=== PATIENT | female | born 1960 | race African-American/Black ===

== ENCOUNTER 2024-07-13 00:10 | Inpatient (IN) | payer BC, MEDICAID, MEDICARE ==
[~2024-07-13] VITALS: Ht 162.6 cm; Wt 123.8 kg
[~2024-07-13 00:10] MED LIST: GABAPENTIN; INSULIN 70/30; LASIX; LISINOPRIL; METFORMI; SPIRONOLACTONE
[2024-07-13 00:40] LABS: BG BASE EXCESS -4.7 mmol/L (-2.0-3.0); BG CARBOXYHEMOGLOBIN 1.2 % (0.5-1.5); BG FRACTION INSPIRED OXYGEN 21; BG METHEMOGLOBIN 0.3 % (0.5-1.5); BG OXYGEN SATURATION 85.8 % (94.0-98.0); BG OXYHEMOGLOBIN 84.5 % (94.0-98.0); BG PCO2 35.8 mmHg (32.0-45.0); BG PH 7.364 (7.350-7.450); BG PO2 50.9 mmHg (83.0-108.0); BG SAMPLE SITE RIGHT RADIAL; BG TOTAL HEMOGLOBIN 14.6 g/dL (12.0-16.0); BG VENT MODE ROOM AIR
[2024-07-13 02:23] LABS: CHLORIDE 102 mEq/L (98-107); POTASSIUM 3.3 mEq/L (3.5-5.1); SODIUM 137 mEq/L (136-145)
[2024-07-13 02:24] LABS: CALCIUM 9.5 mg/dL (8.7-10.4); CARBON DIOXIDE 26 mEq/L (21-32)
[2024-07-13 02:25] LABS: BASOPHILS % 0.4 % (0.0-2.0); EOSINOPHILS % 0.9 % (0.0-5.0); HEMATOCRIT. 43.6 % (36.0-48.0); HEMOGLOBIN. 13.9 g/dL (12.0-16.0); LYMPHOCYTES % 8.6 % (20.0-50.0); MEAN CORPUSCULAR HEMOGLOBIN 28.6 pg (28.0-32.0); MEAN CORPUSCULAR HGB CONC 31.9 g/dL (31.0-37.0); MEAN CORPUSCULAR VOLUME 89.6 fL (81.0-99.0); MEAN PLATELET VOLUME 11.3 fl (7.4-10.4); MONOCYTES % 4.8 % (2.0-8.0); NEUTROPHILS % 85.3 % (40.0-76.0); PLATELET 183 x1000/uL (130-400); RED BLOOD CELL COUNT 4.87 mill/uL (4.2-5.4); RED CELL DISTRIBUTION WIDTH 14.4 % (11.6-14.6); WHITE BLOOD COUNT 9.2 x1000/uL (4.5-11.0)
[2024-07-13 02:29] LABS: CREATININE 2.1 mg/dL (0.6-1.0); UREA NITROGEN BLOOD 29 mg/dL (9-23)
[2024-07-13 02:30] LABS: ETHANOL BLOOD < 10 mg/dL (<10)
[2024-07-13 02:39] LABS: PROTHROMBIN TIME 11.1 sec (9.6-11.0)
[2024-07-13] MEDS: HYDRALAZINE 20MG/ML VIAL IV NR (02:39)
[2024-07-13] MEDS ORDERED: NICARDIPINE 40MG/200ML PREMIX 230 ML IV PRN (03:45)
[2024-07-13 03:50] LABS: GLUCOSE 421 mg/dL (70-105); TROPONIN I HIGH SENSITIVITY 47 ng/L (3.0-34)
[2024-07-13 03:52] LABS: LACTIC ACID 2.1 mmol/L (0.4-2.0)
[2024-07-13] MEDS ORDERED: DOCUSATE SODIUM 100MG CAPSULE PO PRN (04:15)
[2024-07-13] MEDS ORDERED: NICARDIPINE 40MG/200ML PREMIX 200 ML IV PRN (04:15)
[2024-07-13] MEDS ORDERED: ACETAMINOPHEN 325MG TABLET PO PRN ×2 (04:15)
[2024-07-13] MEDS ORDERED: ONDANSETRON HCL 4MG/2ML INJ IV PRN (04:15)
[2024-07-13] MEDS ORDERED: MAGNESIUM/ALUMINUM HYDROXIDE/SIMETHICONE 30ML UDC PO PRN (04:15)
[2024-07-13] MEDS ORDERED: IPRATROPIUM/ALBUTEROL 0.5-3(2.5)MG/3ML NEB HHN PRN (04:15)
[2024-07-13] MEDS ORDERED: GUAIFENESIN 200MG/10ML SUGAR FREE UDC PO PRN (04:15)
[2024-07-13] MEDS: INSULIN REGULAR (HUMULIN R) 1000UNITS/10ML VIAL SUBCUT ONE (04:28)
[2024-07-13] MEDS: POTASSIUM CHLORIDE 20MEQ/PACKET PO NR ×2 (04:28→14:39)
[2024-07-13] MEDS ORDERED: DEXTROSE 50% WATER 50ML SYRINGE IV PRN (04:30)
[2024-07-13] MEDS: HYDRALAZINE 20MG/ML VIAL IV ONE (04:50)
[2024-07-13 05:39] LABS: BASOPHILS % 0.4 % (0.0-2.0); EOSINOPHILS % 0.2 % (0.0-5.0); HEMOGLOBIN. 14.1 g/dL (12.0-16.0); LYMPHOCYTES % 11.5 % (20.0-50.0); MEAN CORPUSCULAR HEMOGLOBIN 28.4 pg (28.0-32.0); MEAN CORPUSCULAR HGB CONC 32.1 g/dL (31.0-37.0); MEAN CORPUSCULAR VOLUME 88.5 fL (81.0-99.0); MONOCYTES % 6.3 % (2.0-8.0); NEUTROPHILS % 81.6 % (40.0-76.0); PLATELET 188 x1000/uL (130-400); RED BLOOD CELL COUNT 4.97 mill/uL (4.2-5.4)
[2024-07-13 05:45] VITALS: BP 160/70; PULSE 83; PULSE 84; RESP 18; TEMP 36.9; O2SAT 96
[2024-07-13 05:46] LABS: CHLORIDE 103 mEq/L (98-107); POTASSIUM 3.6 mEq/L (3.5-5.1); SODIUM 138 mEq/L (136-145)
[2024-07-13 05:47] LABS: CALCIUM 10.1 mg/dL (8.7-10.4); CARBON DIOXIDE 27 mEq/L (21-32)
[2024-07-13 05:52] LABS: CREATININE 2.1 mg/dL (0.6-1.0); TRIGLYCERIDE 84 mg/dL (0-150); UREA NITROGEN BLOOD 29 mg/dL (9-23)
[2024-07-13 05:53] LABS: LDL CHOLESTEROL 53 mg/dL (5-100)
[2024-07-13 05:54] LABS: ALANINE AMINOTRANSFERASE 11 IU/L (10-49); ALBUMIN 3.8 g/dL (3.2-4.8); ASPARTATE AMINOTRANSFERASE 21 IU/L (<34); BILIRUBIN DIRECT 0.3 mg/dL (<=3.0); BILIRUBIN TOTAL 0.7 mg/dL (0.1-1.0); CHOLESTEROL 126 mg/dL (<200); CREATINE KINASE 401 IU/L (34-145); CREATINE KINASE MB FRACTION 6.8 ng/mL (0.5-3.6); HDL CHOLESTEROL 42 mg/dL (>65); PHOSPHORUS 2.8 mg/dL (2.5-4.9)
[2024-07-13 05:55] LABS: PROTEIN TOTAL 7.6 g/dL (6.0-8.3)
[2024-07-13 05:58] LABS: THYROID STIMULATING HORMONE 1.66 uIU/mL (0.55-4.78)
[2024-07-13 06:18] LABS: GLUCOSE 407 mg/dL (70-105); TROPONIN I HIGH SENSITIVITY 74 ng/L (3.0-34)
[2024-07-13] MEDS: PANTOPRAZOLE 40MG DR TABLET PO SCH (06:55)
[2024-07-13] MEDS: HYDRALAZINE HCL 25MG TABLET PO SCH (06:55)
[2024-07-13] MEDS: INSULIN LISPRO 100 UNITS/ML SUBCUT SCH ×2 (06:56→06:57)
[2024-07-13] MEDS: BLOOD SUGAR DIAGNOSTIC STRIP TEST SCH (06:57)
[2024-07-13 08:00] VITALS: BP 160/82; PULSE 89; RESP 20; TEMP 37; O2SAT 100
[2024-07-13] MEDS: ATENOLOL 50 MG TABLET PO SCH (08:54)
[2024-07-13] MEDS: FUROSEMIDE 40MG/4ML VIAL IVP SCH (08:54)
[2024-07-13] MEDS: AMLODIPINE 10MG TABLET PO SCH (08:54)
[2024-07-13 12:30] VITALS: BP 167/80; PULSE 79; RESP 18; TEMP 36.6; O2SAT 100
[2024-07-13] MEDS: MAGNESIUM 4 G PREMIX 100 ML IV NR (14:39)
[2024-07-13 16:00] VITALS: BP 155/70; PULSE 59; RESP 20; TEMP 36.4; O2SAT 93
[2024-07-13 17:34] LABS: CREATINE KINASE MB FRACTION 7.3 ng/mL (0.5-3.6)
[2024-07-13 20:00] VITALS: BP 180/79; PULSE 61; RESP 17; TEMP 36.2; O2SAT 96
[2024-07-13] MEDS: ENOXAPARIN 40MG/0.4ML SYR SUBCUT SCH (21:00)
[2024-07-13] MEDS: INSULIN GLARGINE 100 UNITS/ML SUBCUT SCH (21:48)
[2024-07-13] MEDS: HYDRALAZINE HCL 100MG TABLET PO SCH (21:50)
[2024-07-14 01:25] LABS: CREATINE KINASE MB FRACTION 6.3 ng/mL (0.5-3.6)
[2024-07-14 04:00] VITALS: BP 187/82; PULSE 62; RESP 17; TEMP 36.3; O2SAT 95
[2024-07-14] MEDS: CLONIDINE 0.1MG TABLET PO PRN (04:47)
[2024-07-14 07:13] LABS: BASOPHILS % 0.5 % (0.0-2.0); DIFFERENTIAL COMMENT 0; EOSINOPHILS % 1.2 % (0.0-5.0); HEMATOCRIT. 44.5 % (36.0-48.0); HEMOGLOBIN. 13.9 g/dL (12.0-16.0); LYMPHOCYTES % 23.9 % (20.0-50.0); MEAN CORPUSCULAR HEMOGLOBIN 28.2 pg (28.0-32.0); MEAN CORPUSCULAR HGB CONC 31.2 g/dL (31.0-37.0); MEAN CORPUSCULAR VOLUME 90.6 fL (81.0-99.0); MEAN PLATELET VOLUME 12.5 fl (7.4-10.4); MONOCYTES % 7.7 % (2.0-8.0); NEUTROPHILS % 66.7 % (40.0-76.0); PLATELET 113 x1000/uL (130-400); RED BLOOD CELL COUNT 4.92 mill/uL (4.2-5.4); RED CELL DISTRIBUTION WIDTH 14.7 % (11.6-14.6); WHITE BLOOD COUNT 6.8 x1000/uL (4.5-11.0)
[2024-07-14 07:22] LABS: CARBON DIOXIDE 24 mEq/L (21-32); CHLORIDE 103 mEq/L (98-107); POTASSIUM 4.3 mEq/L (3.5-5.1); SODIUM 137 mEq/L (136-145)
[2024-07-14 07:23] LABS: CALCIUM 9.9 mg/dL (8.7-10.4)
[2024-07-14 07:26] LABS: CREATINE KINASE MB FRACTION 5.4 ng/mL (0.5-3.6)
[2024-07-14 07:27] LABS: CREATININE 2.5 mg/dL (0.6-1.0)
[2024-07-14 07:28] LABS: CREATINE KINASE 733 IU/L (34-145); GLUCOSE 240 mg/dL (70-105); UREA NITROGEN BLOOD 37 mg/dL (9-23)
[2024-07-14 07:30] LABS: PHOSPHORUS 3.1 mg/dL (2.5-4.9)
[2024-07-14 07:59] LABS: TROPONIN I HIGH SENSITIVITY 71 ng/L (3.0-34)
[2024-07-14 08:00] VITALS: BP_SYST 112; BP_DIAS 58; BP_DIAS 60; PULSE 58; RESP 18; TEMP 36.5; O2SAT 94; O2SAT 97
[2024-07-14] MEDS ORDERED: SODIUM CHLORIDE 0.9% 500 ML IV ONE (08:15)
[2024-07-14] MEDS: ASPIRIN 81MG TABLET PO SCH (08:31)
[2024-07-14] MEDS: ENOXAPARIN 120MG/0.8ML SYR SUBCUT SCH (08:32)
[2024-07-14] MEDS: SODIUM CHLORIDE 0.9% 1,000 ML IV SCH (08:32)
[2024-07-14] MEDS: METOPROLOL TARTRATE 50MG TABLET PO SCH (08:39)
[2024-07-14] MEDS: NIFEDIPINE XL 60MG TAB PO SCH (08:39)
[2024-07-14] MEDS: SODIUM CHLORIDE 0.9% 1,000 ML IV ONE (11:19)
[2024-07-14 11:42] LABS: HIV 1/2 AB P24AG Negative (Negative)
[2024-07-14 12:00] VITALS: BP 120/60; PULSE 70; RESP 16; TEMP 36.9; O2SAT 94; O2SAT 98
[2024-07-14 16:00] VITALS: BP 144/68; PULSE 68; RESP 16; TEMP 36.6; O2SAT 95; O2SAT 99
[2024-07-14 16:32] LABS: HEPATITIS B SURFACE ANTIGEN NEGATIVE; HEPATITIS C VIR.AB 0.07 INDEXVAL (0.00-0.80)
[2024-07-14 20:00] VITALS: BP 117/69; PULSE 59; RESP 17; TEMP 36.4; O2SAT 96
[2024-07-14] MEDS: SODIUM CHLORIDE 0.45% 1,000 ML IV SCH (21:36)
[2024-07-14] MEDS: INSULIN GLARGINE 100 UNITS/ML SUBCUT SCH (21:45)
[2024-07-15] VITALS: BP 142/65; PULSE 62; RESP 18; TEMP 36.2; O2SAT 96
[2024-07-15 04:00] VITALS: BP 132/48; PULSE 68; RESP 20; TEMP 36.2; O2SAT 98
[2024-07-15] MEDS: INSULIN LISPRO 100 UNITS/ML SUBCUT SCH (06:25)
[2024-07-15 06:49] LABS: BASOPHILS % 0.3 % (0.0-2.0); EOSINOPHILS % 1.9 % (0.0-5.0); HEMATOCRIT. 38.5 % (36.0-48.0); HEMOGLOBIN. 12.2 g/dL (12.0-16.0); LYMPHOCYTES % 27.1 % (20.0-50.0); MEAN CORPUSCULAR HEMOGLOBIN 28.5 pg (28.0-32.0); MEAN CORPUSCULAR HGB CONC 31.8 g/dL (31.0-37.0); MEAN CORPUSCULAR VOLUME 89.6 fL (81.0-99.0); MEAN PLATELET VOLUME 11.5 fl (7.4-10.4); MONOCYTES % 7.3 % (2.0-8.0); NEUTROPHILS % 63.4 % (40.0-76.0); PLATELET 167 x1000/uL (130-400); RED BLOOD CELL COUNT 4.29 mill/uL (4.2-5.4); RED CELL DISTRIBUTION WIDTH 14.4 % (11.6-14.6); WHITE BLOOD COUNT 6.1 x1000/uL (4.5-11.0)
[2024-07-15 07:05] LABS: CALCIUM 9.2 mg/dL (8.7-10.4); CHLORIDE 101 mEq/L (98-107); SODIUM 134 mEq/L (136-145)
[2024-07-15 07:06] LABS: CARBON DIOXIDE 25 mEq/L (21-32)
[2024-07-15 07:11] LABS: CREATININE 2.9 mg/dL (0.6-1.0); GLUCOSE 185 mg/dL (70-105); UREA NITROGEN BLOOD 41 mg/dL (9-23)
[2024-07-15 07:13] LABS: PHOSPHORUS 3.4 mg/dL (2.5-4.9)
[2024-07-15 08:00] VITALS: BP 112/70; PULSE 57; RESP 20; TEMP 36.5; O2SAT 96
[2024-07-15 12:00] VITALS: BP 129/56; PULSE 58; RESP 20; TEMP 36.5; O2SAT 95
[2024-07-15 16:00] VITALS: BP 141/64; PULSE 54; RESP 18; TEMP 36.5; O2SAT 95
[2024-07-15 20:00] VITALS: BP 115/47; PULSE 60; RESP 16; TEMP 36.1; O2SAT 96
[2024-07-15] MEDS: METOPROLOL TARTRATE 25MG TABLET PO SCH (21:24)
[2024-07-16] VITALS: BP 112/55; PULSE 63; RESP 16; TEMP 36.2; O2SAT 93
[2024-07-16 04:00] VITALS: BP 132/56; PULSE 58; RESP 16; TEMP 36.1; O2SAT 95
[2024-07-16 08:00] VITALS: BP 144/63; PULSE 64; RESP 18; TEMP 36.7; O2SAT 96
[2024-07-16] MEDS ORDERED: REGADENOSON 0.4 MG/5 ML IV ONE (10:40)
[2024-07-16 12:00] VITALS: BP_SYST 130; BP_SYST 134; BP_DIAS 58; BP_DIAS 60; PULSE 70; RESP 19; RESP 20; TEMP 36.6; O2SAT 95
[2024-07-16] MEDS: REGADENOSON 0.4 MG/5 ML IV NR (13:36)
[2024-07-16 16:00] VITALS: BP 131/58; PULSE 67; RESP 20; TEMP 36.7; O2SAT 97
[2024-07-16 20:00] VITALS: BP 108/64; PULSE 62; RESP 20; TEMP 36.3; O2SAT 96
[2024-07-17] VITALS: BP 133/68; PULSE 92; RESP 20; TEMP 36.2; O2SAT 96
[2024-07-17 04:00] VITALS: BP 130/60; PULSE 64; RESP 20; TEMP 36.2; O2SAT 98
[2024-07-17 08:15] VITALS: BP 135/92; PULSE 88; RESP 18; TEMP 36.6; O2SAT 95
[2024-07-17 12:11] VITALS: BP 149/70; PULSE 100; RESP 16; TEMP 37.2; O2SAT 94
[2024-07-17 16:00] VITALS: BP 121/56; PULSE 75; RESP 18; TEMP 37.5; O2SAT 95
[2024-07-17] MEDS: INSULIN GLARGINE 100 UNITS/ML SUBCUT SCH (18:18)
[2024-07-17 20:00] VITALS: BP 148/69; PULSE 65; RESP 20; TEMP 36.2; O2SAT 97
[2024-07-18] VITALS: BP 127/60; PULSE 64; RESP 20; TEMP 36.2; O2SAT 96
[2024-07-18 04:00] VITALS: BP 170/72; PULSE 69; RESP 20; TEMP 36.7; O2SAT 69
[2024-07-18 08:20] VITALS: BP 164/72; PULSE 68; RESP 18; TEMP 37.1; O2SAT 96
[2024-07-18] MEDS: ENOXAPARIN 40MG/0.4ML SYR SUBCUT SCH (08:37)
[2024-07-18 12:00] VITALS: BP 161/67; PULSE 69; RESP 20; TEMP 36.7; O2SAT 95
[2024-07-18 16:10] VITALS: BP 146/68; PULSE 66; RESP 20; TEMP 36.6; O2SAT 97
[2024-07-18 20:00] VITALS: BP 147/71; PULSE 68; RESP 18; TEMP 36.4; O2SAT 99
[2024-07-18] MEDS: BLOOD SUGAR DIAGNOSTIC STRIP TEST SCH (23:50)
[2024-07-19] VITALS: BP 158/83; PULSE 72; RESP 19; TEMP 36.6; O2SAT 96
[2024-07-19 04:00] VITALS: BP 158/81; PULSE 69; RESP 19; TEMP 36.6; O2SAT 95
[2024-07-19] MEDS: FAMOTIDINE 20MG TABLET PO SCH (06:42)
[2024-07-19 08:00] VITALS: BP 139/70; PULSE 69; RESP 20; TEMP 36.6; O2SAT 95
[2024-07-19] MEDS: NIFEDIPINE XL 90MG TAB PO SCH (09:04)
[2024-07-19 12:00] VITALS: BP 158/65; PULSE 68; RESP 18; TEMP 36.6; O2SAT 97
[2024-07-19] MEDS ORDERED: DEXTROSE 50% WATER 50ML SYRINGE IV PRN (12:15)
[2024-07-19] MEDS: BLOOD SUGAR DIAGNOSTIC STRIP TEST SCH (12:47)
[2024-07-19] MEDS: INSULIN LISPRO 100 UNITS/ML SUBCUT SCH (12:49)
[2024-07-19 16:00] VITALS: BP 136/61; PULSE 70; RESP 20; TEMP 36.6; O2SAT 95
[2024-07-19 20:00] VITALS: BP 115/94; PULSE 68; RESP 21; TEMP 36; O2SAT 94
[2024-07-20] VITALS: BP 151/65; PULSE 71; RESP 21; TEMP 36; O2SAT 97
[2024-07-20 04:00] VITALS: BP 157/65; PULSE 76; RESP 22; TEMP 36.8; O2SAT 96
[2024-07-20 08:00] VITALS: BP 162/80; PULSE 67; RESP 19; TEMP 36.6; O2SAT 97
[2024-07-20 12:00] VITALS: BP 146/86; PULSE 68; RESP 20; TEMP 36.7; O2SAT 96
[2024-07-20 16:00] VITALS: BP 150/67; PULSE 66; RESP 16; TEMP 36.5; O2SAT 98
[2024-07-20 20:00] VITALS: BP 120/58; PULSE 70; RESP 22; TEMP 36.8; O2SAT 93
[2024-07-21] VITALS (7 sets, daily range): BP systolic 116–163; BP diastolic 59–72; PULSE 68–81; RESP 18–22; TEMP 36.2–36.8; O2SAT 93–97
[2024-07-22] VITALS (8 sets, daily range): BP systolic 99–168; BP diastolic 57–81; PULSE 65–79; RESP 18–22; TEMP 36.1–36.6; O2SAT 93–97
[2024-07-23] VITALS: BP 171/74; PULSE 77; RESP 19; TEMP 36.6; O2SAT 95
[2024-07-23 04:00] VITALS: BP 145/59; PULSE 68; RESP 19; TEMP 36.6; O2SAT 93
[2024-07-23 08:00] VITALS: BP 157/55; PULSE 83; RESP 19; TEMP 37.6; O2SAT 95
[2024-07-23] MEDS: LOSARTAN 50 MG TABLET PO SCH (08:36)
[2024-07-23 12:00] VITALS: BP 137/68; PULSE 67; RESP 19; TEMP 36.9; O2SAT 95
[2024-07-23 16:00] VITALS: BP 137/72; PULSE 64; RESP 20; TEMP 37.1; O2SAT 95
[2024-07-24] VITALS: BP 167/70; PULSE 67; RESP 20; TEMP 36.6; O2SAT 98
[2024-07-24 04:00] VITALS: BP 146/64; PULSE 71; RESP 19; TEMP 36.6; O2SAT 98
[2024-07-24 08:00] VITALS: BP 145/68; PULSE 68; RESP 19; TEMP 36.7; O2SAT 94
[2024-07-24 12:00] VITALS: BP 124/71; PULSE 75; RESP 18; TEMP 36.2; O2SAT 95
[2024-07-24 16:00] VITALS: BP 132/60; PULSE 75; RESP 18; TEMP 36.6; O2SAT 99
[2024-07-24 20:00] VITALS: BP 164/73; PULSE 86; RESP 18; TEMP 36.2; O2SAT 94
[2024-07-25] VITALS: BP 153/68; PULSE 82; RESP 16; TEMP 36.2; O2SAT 94
[2024-07-25 04:00] VITALS: BP 141/68; PULSE 71; RESP 16; TEMP 36.2; O2SAT 98
[2024-07-25 08:00] VITALS: BP 129/75; PULSE 77; RESP 18; TEMP 36.6; O2SAT 95
[2024-07-25 12:00] VITALS: BP 137/65; PULSE 66; RESP 20; TEMP 37.1; O2SAT 95
[2024-07-25 14:40] VITALS: BP 137/65; PULSE 66; TEMP 97.8; O2SAT 95
[2024-07-25 16:00] VITALS: BP 124/64; PULSE 67; RESP 20; TEMP 36.9; O2SAT 97
== END 2024-07-25 21:55 | DRG 77 ==
LOC: ER 00:10 → EDBEDREQSVC 03:46 → EDBEDREQ 03:46 → 8WST 04:35 → EDBEDREQSVC 04:38
PROVIDERS: ADMIT Internal Medicine; ATTEND Internal Medicine
DX: I67.4 Hypertensive encephalopathy (principal); G93.41 Metabolic encephalopathy; I21.A1 Myocardial infarction type 2; I16.1 Hypertensive emergency; N17.9 Acute kidney failure, unspecified; E87.20 Acidosis, unspecified; L97.929 Non-pressure chronic ulcer of unspecified part of left lower leg with unspecified severity; L97.919 Non-pressure chronic ulcer of unspecified part of right lower leg with unspecified severity; N18.4 Chronic kidney disease, stage 4 (severe); Z68.42 Body mass index [BMI] 45.0-49.9, adult; I12.9 Hypertensive chronic kidney disease with stage 1 through stage 4 chronic kidney disease, or unspecified chronic kidney disease; Z20.822 Contact with and (suspected) exposure to COVID-19; E11.65 Type 2 diabetes mellitus with hyperglycemia; E87.6 Hypokalemia; E11.22 Type 2 diabetes mellitus with diabetic chronic kidney disease; I87.8 Other specified disorders of veins; L30.9 Dermatitis, unspecified; E66.01 Morbid (severe) obesity due to excess calories; J44.9 Chronic obstructive pulmonary disease, unspecified; Z79.4 Long term (current) use of insulin; Z79.899 Other long term (current) drug therapy; Z86.73 Personal history of transient ischemic attack (TIA), and cerebral infarction without residual deficits; Z99.81 Dependence on supplemental oxygen
CPT/HCPCS: 36415; 36600; 71045; 78452; 80048; 80061; 80076; 80320; 82375; 82550; 82553; 82805; 82962; 83036; 83605; 83735; 83880; 84100; 84439; 84443; 84484; 85025; 87426; 93005; 93017; 93306; 93970; 94070; 94760; 97110; 97116; 97162; 97530; 99285; A4606; A6261; A6449; A9500; J0360; J1650; J1815; J1940; J2785; J3475; J7030; G0480